=== PATIENT | male | born 1940 | race Caucasian/White ===

== ENCOUNTER 2024-04-05 21:54 | Outpatient (CLI) | payer OTHER, SELFPAY | END 2024-04-05 21:55 | disposition home or self-care (01) | LOC: AMB 04-23 03:31 | PROVIDERS: Visit Provider Family Medicine | DX: S80.211A Abrasion, right knee, initial encounter (principal); W10.9XXA Fall (on) (from) unspecified stairs and steps, initial encounter; Y92.9 Unspecified place or not applicable | CPT/HCPCS: A0998 ==